=== PATIENT | male | born 1975 ===

== ENCOUNTER 2025-05-16 15:09 | Emergency (ER) | payer MEDICAID, SELFPAY ==
--- NOTE | ~2025-05-16 | XR_ITS ---
EXAMINATION: XR SHOULDER, LEFT CLINICAL INFORMATION: atraumatic left shoulder pain COMPARISON: None available. TECHNIQUE: AP external rotation, Grashey, scapular Y, and axillary views of the left shoulder. FINDINGS: There is no AC joint separation. There is moderate degenerative change of the AC joint with narrowing and small marginal osteophytes. Glenohumeral joint is intact and not degenerated. No fracture lines are evident. There are no abnormal soft tissue calcification. XR/XR shoulder LT min 2V IMPRESSION: Moderate AC joint arthropathy. Electronically signed by: Luis Holden MD 05/16/2025 03:26 PM EDT
--- NOTE | 2025-05-16 15:11 | ED.GENADULT ---
HPI - General Adult General Chief complaint: Extremity Problem Stated complaint: L shoulder pain Time Seen by Provider: 05/16/25 15:57 Source: patient Mode of arrival: ambulatory Limitations: no limitations History of Present Illness ED Provider: Joanne Harrison PA-C HPI narrative: Patient here with left sided shoulder/neck discomfort. Came here from [place] 3 weeks ago. Repetitive activity. Right side bothersome but not as much. Patient admits to probably overdoing it in regards to moving stuff from [place] he is not sure if he will be staying here permanently or not. He is right-hand dominant. He feels the pain in his bilateral upper shoulders were left side is worse in his left upper trap and upper middle deltoid region. Sometimes it radiates down his arm. He is denying any paresthesias or weakness of his limbs zone has no chest pain or discomfort with breathing. He has tried yrli-jey-[id number] Tylenol but it has made no difference. He states that as he is not from this area he did know where else to go so he came to the emergency department. He denies any trauma to these limbs before in the past. He is denying any associated neck pain but he does sleep on his left side was sometimes makes the back pain worse. Patient wanted to know if he can get a shot into his muscle to make the pain. Related Data Previous Rx's ?Medication ?Instructions ?Recorded lidocaine 5 % topical patch 1 patch topical DAILY #30 ea 05/16/25 (Lidoderm) methocarbamol 750 mg tablet 750 mg PO TID #10 tabs 05/16/25 Allergies Allergy/AdvReac Type Severity Reaction Status Date / Time No Known Allergies Allergy Verified 05/16/25 15:14 Review of Systems Review of Systems: Yes all other systems are reviewed and are negative PMFSH Past Medical History Attestation statement: The following information was validated with the patient. Source: nursing notes reviewed Social History Social History Advance Directives: No Advance Directives Information Provided: No Physical Exam ED Exam Exam: General: Appears in no acute distress, appears well nourished body habitus is obese, appears stated age. No septic or ill-appearing. Vitals reviewed normal, PMH/Social and Surgical hx reviewed including allergies and current medications. - Head: Normocephalic, no obvious trauma or skin lesions noted. Eyes: EOMI ENMT: moist oral mucosa Neck: trachea midline Cardiovascular: peripheral perfusion normal, Regular heart rate Respiratory: no respiratory distress, lungs clear to auscultation bilaterally Abdomen: obese Extremities: warm and moving without difficulty , patient has mild tenderness to palpation over his left anterior shoulder pain with resisted GH joint in all directions except for adduction. Tenderness with spasm of patient's left upper trapezius. No pain with neck rotation. Greeting Card Writer strength is 4+ throughout compartments are soft, there is no midline tenderness step-offs or deformities of entire spine Psych: Cooperative Neuro: Alert and oriented. Vital Signs: Vital Signs - 24 hr 05/16/25 15:12 05/16/25 16:00 05/16/25 16:37 Temperature 96.3 F L 97.1 F 97.1 F Pulse Rate 77 70 70 Respiratory Rate 18 15 15 Blood Pressure 160/94 H 154/88 H 154/88 H Pulse Oximetry 97 98 98 Oxygen Delivery Method Room Air Room Air Room Air BMI result Body Mass Index 41.0 Course Course Course Narrative: This is a Rapid Medical Examination (RME) performed by Amanda Anton PA-C in triage. Full HPI, ROS, assessment and treatment plan per primary provider in the Main ED. Hx: 49 yo M here for eval of atraumatic L shoulder pain, gradually worsening x2 weeks. applying icy hot without improvement. pain at rest and w /movement. no known injury/trauma/heavy lifting. no hx shoulder surgery. currently here from out of town - is unable to f/u with his provider. Plan: xrs Medical Decision Making Medical Decision Making MDM Narrative: Well-appearing 49-year-old male here for atraumatic left-sided shoulder pain but suspicious for repetitive activity with moving from here from [place]. He received a rapid medical exam from triage where they ordered a left shoulder x-ray. Left shoulder shows arthropathy of the AC joint but otherwise patient does not have pinpoint tenderness on here. This does not present as shoulder impingement or subacromial bursitis. Given history, exam and workup I have low suspicion for fracture, dislocation, significant ligamentous injury, septic arthritis, gout flare, new autoimmune arthropathy, or gonococcal arthropathy. He has good range of motion but some muscle tightening we will try a muscle relaxant and lidocaine patch and a advise follow up with Orthopedics. Interventions:Disposition: Discharge home with strict return precautions and instructions for prompt ortho follow up Differential Diagnosis Differential Diagnoses: The differential diagnosis associated with the presentation includes See MDM Admission/Observation Consideration of admission/observation: Escalation of care including admission/observation considered Patient would have been admitted to the hospital had his work up had any findings where hospital admission was appropriate and his clinical presentation warranted hospital admission. Independent Interpretation I performed an independent interpretation of an: Plain X-Ray Interpretation: No dislocation no fracture Radiology Impression Discussion of test interpretation with radiology: I have reviewed the radiologist's reading. Radiologist Impression: Arthropathy of the left AC joint Tests considered The following testing was considered but not selected: Would have considered further workup had there been any concerns for neurovascular compromise Prescription Management I considered prescription management with: Pain Medication Chronic Conditions Patient?s care impacted by: Other (obesity) Social Determinants Patient?s care significantly limited by Social Determinants of Health including: Other Social Determinant of Health Discharge Plan Discharge Clinical Impression: Strain of muscle and tendon of back wall of thorax, initial encounter, Spasm of thoracic back muscle Muscle strain of left shoulder region Qualifiers: Encounter type: initial encounter Qualified Code(s): S46.912A - Strain of unspecified muscle, fascia and tendon at shoulder and upper arm level, left arm, initial encounter Patient Disposition: Home, Self-Care Instructions: Muscle Strain (ED), Muscle Strain (DC), Muscle Spasm (ED) Additional Instructions: You were evaluated for your shoulders and upper back. As her left shoulder was more bothersome he received an x-ray which shows no evidence for fracture dislocation. Your history and physical exam is most consistent with a shoulder/trapezius muscle strain. Rest: Avoid sudden movements of your neck, heavy lifting, twisting and turning.?? Use ice to the area for the first 24-48 hours, then you can use moist heat to the area (use a warm moist cloth or heating pad) for 20 minutes at a time, 3-4 times a day.? Gentle massage to tight muscles can help.? Using a sportscream like [employer] or [email or web address] can also help. Use Motrin/Advil (ibuprofen) 600 mg three times a day for the next 5 days, then every 6 to 8 hours? as needed for pain. Take ibuprofen with food to avoid stomach irritation.? In addition, You can use Tylenol (acetaminophen) 650 mg every 6 hrs as needed for pain.? Do not take more than 3000 mg in one day! Follow up with your PCP in the next few days to be re-evaluated or orthopedics. Return to the ER if you develop a severe headache, numbness or weakness in your arms or legs, dizziness, change in your vision, nausea, vomiting, or any other new, concerning symptoms. Prescriptions: New methocarbamol 750 mg tablet 750 mg PO TID Qty: 10 0RF lidocaine [Lidoderm] 5 % adhesive patch,medicated 1 patch topical DAILY Qty: 30 0RF Rx Instructions: leave on most painful area for up to 12 hrs Referrals: [facility] [place] Orthopedic Surgeons [Provider Group] Referral Note: potential PT referral Interventions: ED Discharge Assessment Last Done: 05/16/25 16:37 Print Language: Polish
[2025-05-16 15:12] VITALS: BP 160/94; PULSE 77; RESP 18; TEMP 35.7; O2SAT 97; BMI 41.0
[2025-05-16 16:00] VITALS: BP 154/88; PULSE 70; RESP 15; TEMP 36.2; O2SAT 98
[2025-05-16 16:37] VITALS: BP 154/88; PULSE 70; RESP 15; TEMP 36.2; O2SAT 98
--- OUTSIDE RECORDS SUMMARY | 2025-05-16 16:52 | XMS_ITS | Clinical Summary ---
Author Organization [facility] Address [address] [place] [address] [place] [address] Care Team Providers Care Traffic Survey Technician Name Role Phone Aryan Charlton Primary Care Provider [phone] Allergies Active Allergy Reactions Criticality Noted Date Comments Banana Anaphylaxis High 09/30/2018 Bee Venom Anaphylaxis High 09/30/2018 Other Anaphylaxis High 09/30/2018 ANTIBIOTIC; pt does not remember which one Medications EPINEPHrine 0.3 mg/0.3 mL IJ SOAJ injection Inject 0.3 mLs (0.3 mg total) into the muscle as needed for anaphylaxis (bee stings). 2 Device 0 Active NON FORMULARY Pt uses a cpap nightly Active busPIRone (BUSPAR) 15 MG tablet Take 15 mg by mouth 2 (two) times daily. 5 Active Vitamin D, Ergocalciferol , (DRISDOL) 1.25 MG (13848 UNIT) CAPS capsule Take 50,000 Units by mouth every Thursday. 5 Active omeprazole (PRILOSEC) 20 MG capsule Take 20 mg by mouth daily as needed (acid reflux). 4 Active diclofenac sodium (VOLTAREN) 1 % GEL Apply 2 g topically 4 (four) times daily. 100 g 3 0 04/19/20 25 Discontin ued(No longer needed (for PRN medicatio ns)) amoxicillin-cl avulanate (AUGMENTIN) 875-125 MG tablet Take 1 tablet by mouth every 12 (twelve) hours. 14 tablet 1 04/19/20 25 Discontin ued(Compl eted Course) HYDROcodone-ac etaminophen (NORCO/VICODIN ) 5-325 MG tablet Take 1 tablet by mouth every 6 (six) hours as needed. 10 tablet 1 04/19/20 25 Discontin ued(No longer needed (for PRN medicatio ns)) MOUNJARO 15 MG/0.5ML Pen Inject 15 mg into the skin every Thursday. 4 04/19/20 25 Discontin ued(Patie nt Preferenc e) phentermine (ADIPEX-P) 37.5 MG tablet Take 37.5 mg by mouth daily before breakfast. 3 04/19/20 25 Discontin ued(Patie nt Preferenc e) traMADol (ULTRAM) 50 MG tablet Take 50 mg by mouth daily as needed for severe pain (pain score 7-10). 4 04/19/20 25 Discontin ued(No longer needed (for PRN medicatio ns)) Active Problems Problem Noted Date Diagnosed Date Unilateral primary osteoarthritis, left knee Unilateral primary osteoarthritis, right knee Abnormal CT scan, colon 02/24/2020 Microcytic anemia 11/09/2019 Portal vein thrombosis 11/08/2019 Acute diverticulitis 11/08/2019 Hyponatremia 11/08/2019 JACKSON (obstructive sleep apnea) 11/08/2019 Umbilical hernia 10/01/2018 Strangulated umbilical hernia 10/01/2018 Morbid obesity with BMI of 40.0-44.9, adult 12/13 Gastroesophageal reflux disease without esophagi tis 12/30/2016 Primary osteoarthritis of both knees 12/30/2016 Chronic constipation 12/30/2016 Resolved Problems Problem Noted Date Diagnosed Date Resolved Date Unilateral primary osteoarthritis, left knee 9 11/23/2019 Unilateral primary osteoarthritis, right knee 08/31/20 19 11/23/2019 Encounters Date Type Department Care Team Description 04/17/2025 Orders Only [facility] ONLY ACCESS Reymundo Jones MD 03/29/2025 Orders Only [facility] ONLY ACCESS Reymundo Jones MD 03/22/2025 Orders Only [facility] ONLY ACCESS Reymundo Jones MD from Last 3 Months Immunizations Immunization Administration Dates Next Due Influenza,inj,Quad PF,6+ Mos 11/23/2019 Tdap 11/23/2019 Family History Medical History Relation Name Comments Alcohol abuse Brother 1 Evert Arthritis Brother 1 Evert Depression Brother 1 Evert Diabetes Brother 1 Evert Drug abuse Brother 1 Evert Arthritis Brother 2 Haider Arthritis Brother 3 Eleazer Cancer Father Diabetes Father Arthritis Mother Asthma Mother Diverticulitis Mother Ovarian cancer Mother Esophageal cancer Paternal Grandfather Stomach cancer Paternal Grandfather Arthritis Sister Fatou Colon cancer Neg Hx Rectal cancer Neg Hx Relation Name Status Comments Brother 1 Evert Alive Brother 2 Haider Alive Brother 3 Eleazer Alive Father Maternal Grandfather Maternal Grandmother Mother Paternal Grandfather Paternal Grandmother Sister Fatou Alive Social History Tobacco Use Types Packs/Day Years Used Date Smoking Tobacco: Never Passive Smoke Exposure: Never Smokeless Tobacco: Never Tobacco Cessation:Counseling Given: No Alcohol Use Standard Drinks/Week Comments Not Currently 0 (1 standard drink = 0.6 oz pur e alcohol) Depression (PHQ2-9) Answer Date Recorde d PHQ-9 Total Score 0 11/23/2019 Sex and Gender Information Value Date Recorded Sex Assigned at Not on file Legal Sex Male 4:28 PM EST Gender Identity Not on file Sexual Orientation Not on file Last Filed Vital Signs Vital Sign Reading Time Taken Comments Blood Pressure 150/97 10/05/2024 2:45 PM EST Pulse 89 10/05/2024 2:45 PM EST Temperature 36.9 C (98.5 F) 10/05/2024 2:45 PM EST Respiratory Rate 18 10/05/2024 2:45 PM EST Oxygen Saturation 98% 10/05/2024 2:45 PM EST Inhaled Oxygen Concentration - - Weight 117.9 kg (260 lb) 10/05/2024 2:43 PM EST Height 177.8 cm (5' 10 ) 10/05/2024 2:43 PM EST Body Mass Index 37.31 10/05/2024 2:43 PM EST Plan of Treatment Health Maintenance Due Date Last Done Comments COVID-19 Vaccine (#1) 1982 Hepatitis C Screening 1995 Hepatitis B Vaccines 19-59 Average Risk (1 of 3 - 19+ 3-dose series) 1996 Colonoscopy 03/01/2023 03/01/2020, 03/01/2020, 03/01/2020 INFLUENZA VACCINE 04/14/2025 11/23/2019, 11/23/2019 DTaP/Tdap/Td (2 - Td or Tdap) 11/22/2029 11/23/2019 HIV Screening Completed 11/08/2019 HPV VACCINES Aged Out No longer eligi ble based on patient's age to complete this topic Meningococcal B Vaccine Aged Out No l onger eligible based on patient's age to complete this topic Pneumococcal Vaccine Aged Out No long er eligible based on patient's age to complete this topic Medical Devices Implanted Type Area Debarker Operator Device Identifier Shelf Expiration Date Model / Serial / Lot Mesh Ventralex [employer] [employer] - [id number] Implanted:Qt y: 1 on 10/01/2018 by Ghassan Jernigan MD at [facility] Mesh General N/A: Umbilical [employer] BARD ACCESS 05/11/2020 [id number] / / [id number] Procedures Procedure Name Priority Date/Time Associated Diagnosis Comments COLONOSCOPY 03/01/2020 4:34 PM EDT HIV ANTIBODY (ROUTINE TESTING W REFLEX) Routine 11/08/2019 9:57 PM EST from Last 3 Months or Most Recently Relevant to Health Maintenance Results * COLONOSCOPY (03/01/2020 4:34 PM EDT) us Jaun Elpidio V, DO AR PROCEDURES Final Resu lt * HIV Antibody (routine testing w rflx) (11/08/2019 9:57 PM EST) HIV Screen 4th Generation wRfx Non Reactive Non Reactive [facility] Comment: (NOTE) Performed At: [facility] [id number] Billy Griffith MD Ph:[phone] Blood specimen (specimen) 11/08/2019 9:57 PM EST 11/08/2019 10:07 PM EST us Nighat Ngo MD LAB BLOOD ORDERABLES Final Re sult [facility] from Last 3 Months or Most Recently Relevant to Health Maintenance Insurance BS OTHER [place] MED[place] [employer] Advance Directives * Full Code (Latest Code Status on File) Date Activated Date Inactivated Comments 11/08/2019 7:24 PM 11/14/2019 3:59 PM * Full Code Date Activated Date Inactivated Comments 10/01/2018 8:08 AM 10/03/2018 12:13 AM Care Teams Traffic Survey Technician Relationship Specialty Start Date End Date Aryan Charlton PA [address] [facility] [place] [address] PCP - General Physician Health Assessment And Treatment Teacher 04/27/25
--- OUTSIDE RECORDS SUMMARY | 2025-05-16 16:52 | XMS_ITS | Clinical Summary ---
Author Organization [facility]ly [facility] visits prior to 11/14/2023. [place] [address] Care Team Providers Care Instructional Support Services Director Name Role Phone Riki Schneider MD Primary Care Provider [phone] Allergies Active Allergy Reactions Criticality Noted Date Comments Banana Swelling (ALLERGY/intolerance),Cherelle phylaxis (ALLERGY) High 12/30/2016 Bee Sting Kit Swelling (ALLERGY/intolerance) 12/30/2016 Other Anaphylaxis (ALLERGY) High 09/30/2018 ANTIBIOTIC; pt does not remember which one Venom-Honey Bee Anaphylaxis (ALLERGY) High 9 Medications Medication Sig Dispensed Refills Start Date End Date Status omeprazole (PRILOSEC) 10 MG capsule Take 1 tablet by mouth once daily 0 Active cyclobenzaprine (FLEXERIL) 10 MG tablet Take 10 mg by mouth 3 (three) times daily as needed for Muscle spasms. 0 Active phentermine (ADIPEX-P) 37.5 mg tablet Take 1 tablet (37.5 mg total) by mouth daily. 0 01/26/2023 Active tadalafiL (CIALIS) 10 MG tablet 0 02/03/2023 Active tirzepatide (MOUNJARO) 15 mg/0.5 mL subcutaneous injection Inject contents of one pen (15 mg) under skin weekly 2 mL 0 11/10/2023 Active Hospital, Clinic, or Other Facility Administered Medication Ordered Dose Route Frequency Start Date End Date Status triamcinolone acetonide (KENALOG) 40 mg/mL injection 40 mgIndications:Primary osteoarthritis of both knees 40 mg IAtc 02/09/2023 Active triamcinolone acetonide (KENALOG) 40 mg/mL injection 40 mgIndications:Primary osteoarthritis of both knees 40 mg IAtc 02/09/2023 Active Active Problems Problem Noted Date Diagnosed Date Bilateral knee effusions 06/11/2020 Primary osteoarthritis of both knees 12/30/2016 Gastroesophageal reflux disease without esophagi tis 12/30/2016 Chronic constipation 12/30/2016 Morbid obesity with BMI of 40.0-44.9, adult 12/13 Umbilical hernia without obstruction and without gangrene 12/30/2016 JACKSON on CPAP 12/30/2016 Chronic eczematous otitis externa of both ears 0 12/30/2016 Family History Medical History Relation Comments Diabetes Father Stomach cancer Father Ovarian cancer Mother Relation Status Comments Father Mother Social History Tobacco Use Types Packs/Day Years Used Date Smoking Tobacco: Never Smokeless Tobacco: Never Tobacco Cessation:Counseling Given: Not Answered Alcohol Use Standard Drinks/Week Comments No 0 (1 standard drink = 0.6 oz pur e alcohol) Sex and Gender Information Value Date Recorded Sex Assigned at Not on file Gender Identity Not on file Sexual Orientation Not on file Last Filed Vital Signs Vital Sign Reading Time Taken Comments Blood Pressure 124/70 12/30/2016 2:45 PM EDT Pulse 100 12/30/2016 2:45 PM EDT Temperature - - Respiratory Rate 18 12/30/2016 2:45 PM EDT Oxygen Saturation 95% 12/30/2016 2:45 PM EDT Inhaled Oxygen Concentration - - Weight 138.8 kg (306 lb) 02/05/2023 5:00 PM EDT Height 177.8 cm (5' 10 ) 02/05/2023 5:00 PM EDT Body Mass Index 43.91 02/05/2023 5:00 PM EDT Plan of Treatment Health Maintenance Due Date Last Done Comments COLONOSCOPY 2022 INFLUENZA VACCINE 04/14/2025 11/23/2019 Care Teams Instructional Support Services Director Relationship Specialty Start Date End Date Riki Schneider MD [facility] [place] [address] PCP - General Internal Medicine 12/10/16
--- OUTSIDE RECORDS SUMMARY | 2025-05-16 16:52 | XMS_ITS | Encounter Summary ---
Author Organization [facility] Address [address] [place] [address] Care Team Providers Care Surgical Forceps Fabricator Name Role Phone Riki Schneider MD Primary Care Provider [phone] Encounter Details Date Type Department Care Team (Late st Contact Info) Description 12/30/2016 Conversion Orders Only [employer] HISTORICAL DATA CONVERSIONS [address] [place] [address] Social History Tobacco Use Types Packs/Day Years Used Date Smoking Tobacco: Never Assessed Sex and Gender Information Value Date Recorded Sex Assigned at Male 03/03/2024 11:22 AM EDT Legal Sex Male 9:53 AM EST Gender Identity Not on file Sexual Orientation Not on file documented as of this encounter Plan of Treatment Not on file documented as of this encounter Visit Diagnoses Not on filedocumented in this encounter Care Teams Surgical Forceps Fabricator Relationship Specialty Start Date End Date Riki Schneider MD PCP - General Internal Medicine 12/10/16 documented as of this encounter
--- OUTSIDE RECORDS SUMMARY | 2025-05-16 16:52 | XMS_ITS | Clinical Summary ---
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 7 Active phentermine 37.5 mg tab Take 37.5 mg by mouth Once Daily. 3 Active tadalafiL (CIALIS) 10 mg tablet 3 Active tirzepatide (Mounjaro) 12.5 mg/0.5 mL pnij Inject contents of 1 syringe (12.5 mg) under the skin once a week. 30 mL 12/28/2023 1:34 PM EDT 4 Active omeprazole (PriLOSEC) [address] capsule 1 cap by mouth daily 30 capsule 2 4 Active ondansetron (ZOFRAN) 4 mg tablet Take 1 tablet (4 mg total) by mouth 3 (three) times a day. 30 tablet 02/15/2024 12:06 PM EDT 4 Active tadalafiL (CIALIS) 10 mg tablet Take 1 tablet (10 mg total) by mouth daily as needed before sexual activity. Max of 1 dose per 24 hours. Effects may last 36 hours. 30 tablet 2 4 Active tirzepatide (Mounjaro) 15 mg/0.5 mL pnij Inject contents of 1 syringe into the skin once weekly 2 mL 02/15/2024 12:06 PM EDT 4 Active traMADoL (ULTRAM) 50 mg tablet Take 1 tablet (50 mg total) by mouth 2 (two) times a day as needed. 20 tablet 02/15/2024 12:06 PM EDT 4 Active tirzepatide (Mounjaro) 15 mg/0.5 mL pnij Inject contents of 1 syringe under the skin once a week. 2 mL 03/14/2024 1:26 PM EDT 4 Active traMADoL (ULTRAM) 50 mg tablet Take 1 tablet (50 mg total) by mouth 2 (two) times a day as needed. 20 tablet 04/08/2024 3:07 PM EDT 4 Active phentermine 37.5 mg tab Take 1 tablet (37.5 mg total) by mouth daily. 30 tablet 07/19/2024 3:17 PM EST 4 Active atorvastatin (LIPITOR) 10 mg tablet Take 1 tablet by mouth daily 90 tablet 4 Active buPROPion (Wellbutrin XL) 150 mg 24 hr tablet Take 1 tablet (150 mg total) by mouth daily. 30 tablet 4 Active tadalafiL (CIALIS) 10 mg tablet Take 1 tablet (10 mg total) by mouth daily as needed. Effects may last 36 hours. Max 1 dose per 24 hour period. 30 tablet 2 07/19/2024 3:17 PM EST 4 Active ubrogepant (Ubrelvy) 100 mg tab tablet Take 1 tablet (100 mg total) by mouth daily as needed. 16 tablet 5 4 Active buPROPion (Wellbutrin XL) 150 mg 24 hr tablet 1 tab by mouth daily 30 tablet 07/11/2024 2:13 PM EDT 4 Active tadalafiL (CIALIS) 10 mg tablet Take 1 tablet (10 mg total) by mouth daily as needed. 30 tablet 2 4 Active tirzepatide (Mounjaro) 15 mg/0.5 mL subcutaneous pen injector 0.5 mL under skin weekly 2 mL 09/05/2024 4:59 PM EST 4 Active tadalafiL (CIALIS) 10 mg tablet Take 1 to 2 tablets (10-20 mg total) by mouth as needed before sexual activity. Do NOT exceed 2 tablets per dose and do NOT take more than once per 24 hours. Effects may last 36 hours. 30 tablet 2 04/10/2025 1:44 PM EDT 5 Active traMADoL (ULTRAM) 50 mg tablet Take 1 tablet (50 mg total) by mouth daily as needed for bilateral knee pain. 14 tablet 11/07/2024 3:52 PM EST 5 Active traMADoL (ULTRAM) 50 mg tablet 1 (one) tablet by mouth daily, as needed, for bilateral knee pain. 30 tablet 5 Active minoxidiL (LONITEN) 2.5 mg tablet Take 1 tablet (2.5 mg total) by mouth daily. 90 tablet 1 11/07/2024 3:52 PM EST 5 Active phentermine 37.5 mg tab Take 1 (one) Tablet by mouth daily 30 tablet 5 Active traMADoL (ULTRAM) 50 mg tablet 1 (one) tablet by mouth daily, as needed, for bilateral knee pain. 30 tablet 11/24/2024 4:30 PM EDT 5 Active tirzepatide (Mounjaro) 15 mg/0.5 mL subcutaneous pen injector Inject contents of 1 syringe (15 mg total) under the skin once a week. 2 mL 12/02/2024 3:37 PM EDT 5 Active busPIRone (BUSPAR) 7.5 mg tablet Take 1 tablet (7.5 mg total) by mouth 2 (two) times a day. 60 tablet 03/07/2025 2:39 PM EDT 5 Active ergocalciferol (VITAMIN D2) 1,250 mcg (50,000 unit) capsule Take 1 capsule (50,000 Units total) by mouth once a week. 4 capsule 5 03/07/2025 2:39 PM EDT 5 Active tirzepatide (Mounjaro) 15 mg/0.5 mL subcutaneous pen injector Inject 0.5 mL (15 mg total) under the skin once a week. 2 mL 03/07/2025 2:39 PM EDT 5 Active phentermine 37.5 mg tab Take 1 (one) Tablet by mouth daily 30 tablet 03/07/2025 2:39 PM EDT 5 Active tadalafiL (CIALIS) 10 mg tablet Take 1 tablet by mouth up to once daily, 30 minutes before sexual activity as needed. Effects may last for 36 hours. 12 tablet 5 Active busPIRone (BUSPAR) 15 mg tablet Take 1 tablet (15 mg total) by mouth 2 (two) times a day. 60 tablet 03/31/2025 2:19 PM EDT 5 Active phentermine 37.5 mg tab Take 1 tablet (37.5 mg total) by mouth daily. 30 tablet 5 Active traMADoL (ULTRAM) 50 mg tablet Take 1 tablet (50 mg total) by mouth daily as needed for bilateral knee pain. 30 tablet 03/31/2025 2:19 PM EDT 5 Active atorvastatin (LIPITOR) 10 mg tablet Take 1 tablet (10 mg total) by mouth daily. 90 tablet 03/31/2025 2:19 PM EDT 5 Active pantoprazole (PROTONIX) 40 mg EC tablet Take 1 tablet (40 mg total) by mouth daily. 90 tablet 03/31/2025 2:19 PM EDT 5 Active Active Problems Problem Noted Date Diagnosed [...] Sign Reading Time Taken Comments Blood Pressure 124/85 12/21/2024 9:02 AM EDT Pulse 92 12/21/2024 9:02 AM EDT Temperature 36.9 C (98.4 F) 12/21/2024 9:02 AM EDT Respiratory Rate 12 12/21/2024 9:02 AM EDT Oxygen Saturation - - Inhaled Oxygen Concentration - - Weight 121 kg (266 lb) 12/05/2024 2:57 PM EDT Height 170.2 cm (5' 7 ) 12/21/2024 9:02 AM EDT Body Mass Index 41.66 12/05/2024 2:57 PM EDT Plan of Treatment Health Maintenance Due Date Last Done Comments Comprehensive Annual Visit 1977 Diabetes Screening 1995 HIV Screening 1995 Hepatitis C Screening 1995 Hepatitis B Vaccines (1 of 3 - 19+ 3-dose series) 1996 CT Colonography 2022 FIT-DNA 2022 FIT 2022 FOBT 2022 Sigmoidoscopy 2022 Influenza Vaccine (#1) 2025 11/23/2019 COVID-19 Vaccine ( - 2023-2 5 season) 2025 Depression Screening 12/05/2025 12/05/2024 DTaP/Tdap/Td Vaccines (2 - T d or Tdap) 11/22/2029 11/23/2019 Colonoscopy 03/01/2030 03/01/2020 Colorectal Cancer Screening 03/01/2030 Adult RSV (60+ Years or Preg chirag) (1 - 1-dose 75+ series) 2052 HIB Vaccines Aged Out No longer eligi ble based on patient's age to complete this topic HPV Vaccines Aged Out No longer eligi ble based on patient's age to complete this topic Hepatitis A Vaccines Aged Out No long er eligible based on patient's age to complete this topic IPV Vaccines Aged Out No longer eligi ble based on patient's age to complete this topic Meningococcal B Vaccine Aged Out No l onger eligible based on patient's age to complete this topic Meningococcal Conjugate (ACW Y) Vaccine Aged Out No longer eligible b ased on patient's age to complete this topic Pneumococcal Vaccine: Pediat rics (0 to 5 years) and At-Risk Patients (6-49 Years) Aged Out No longer eligible based on patient's age to complete this topic Rotavirus Vaccines Aged Out No longer eligible based on patient's age to complete this topic [place] Care Teams Lead Electrician Relationship Specialty Start Date End Date Riki Schneider MD PCP - General Internal Medicine 12/10/16
--- OUTSIDE RECORDS SUMMARY | 2025-05-16 16:52 | XMS_ITS | Encounter Summary ---
Author Organization [facility] Address [address] [place] [address] Care Team Providers Care Log Pond Worker Name Role Phone Liliana Castillo MD Primary Care Provi mirella Aryan Charlton Primary Care Provider [phone] Encounter Details Date Type Department Care Team (Late st Contact Info) Description 01/25/2020 Scanned Document [facility] Dept Of [address] [address] Provider, MD Julianne Social History Tobacco Use Types Packs/Day Years Used Date Smoking Tobacco: Never Smokeless Tobacco: Never Alcohol Use Standard Drinks/Week Comments Not Currently 0 (1 standard drink = 0.6 oz pur e alcohol) Depression (PHQ2-9) Answer Date Recorde d PHQ-9 Total Score 0 11/23/2019 Sex and Gender Information Value Date Recorded Sex Assigned at Not on file Legal Sex Male 4:28 PM EST Gender Identity Not on file Sexual Orientation Not on file COVID-19 Exposure Response Date Recorded In the last month, have you been in contact with someone who was confirmed or suspected to have Coronavirus / COVID-19? No / Unsure 01/10/2020 11:47 AM EDT documented as of this encounter Plan of Treatment Not on file documented as of this encounter Procedures Procedure Name Priority Date/Time Associated Diagnosis Comments MOLECULAR PATHOLOGY REPORT - SCANNED Routine 01/10/2020 documented in this encounter Results * Molecular Pathology report - scanned (01/10/2020) 01/10/2020 us Historical Provider CYTOLOGY ORDERABLES Final Result documented in this encounter Visit Diagnoses Not on filedocumented in this encounter Care Teams Log Pond Worker Relationship Specialty Start Date End Date Liliana Castillo MD [address] [place] [address] PCP - General Internal Medicine 11/21/19 04/26/25 Aryan Charlton PA [address] [place] [address] PCP - General Physician Wheel Worker 04/27/25 documented as of this encounter
--- OUTSIDE RECORDS SUMMARY | 2025-05-16 16:52 | XMS_ITS | Encounter Summary ---
Author Organization [facility] Address [address] [place] [address] [place] [address] Care Team Providers Care County Court Judge Name Role Phone Liliana Castillo MD Primary Care Provi mirella Aryan Charlton Primary Care Provider [phone] Reason for Visit * Reason Comments Covid-19 Screening Questions Encounter Details Date Type Department Care Team (Late st Contact Info) Description 02/29/2020 Telephone [facility] [place] [address] [address] Jaun Magallanes V, DO [address] [facility] [place] [address] Covid-19 Screening Questions Social History Tobacco Use Types Packs/Day Years [...] have Coronavirus / COVID-19? No / Unsure 03/01/2020 3:23 PM EDT documented as of this encounter Miscellaneous Notes * Telephone Encounter - Marilyn Finley - 02/29/2020 2:34 PM EDT Covid-19 Screening Questions: Do you now or have you had a fever in the last 14 days? No Do you have any respiratory symptoms of shortness of breath or cough now or in the last 14 days? No Do you have any family members or close contacts with diagnosed or suspected Covid-19 in the past 14 days? No Have you been tested for Covid-19 and found to be positive? No Pt made aware of that care attendant may wait in the car or come up to the lobby during the procedurebut will need to provide their own mask. documented in this encounter Plan of Treatment Not on file documented as of this encounter Visit Diagnoses Not on filedocumented in this encounter Care Teams County Court Judge Relationship Specialty Start Date End Date Liliana Castillo MD [address] [place] [address] PCP - General Internal Medicine 11/21/19 04/26/25 Aryan Charlton PA [address] [place] [address] PCP - General Physician Telesales Manager 04/27/25 documented as of this encounter
--- OUTSIDE RECORDS SUMMARY | 2025-05-16 16:52 | XMS_ITS | Encounter Summary ---
Author Organization [facility] Address [address] [place] [address] Care Team Providers Care Trade Sales Assistant Name Role Phone Riki Schneider MD Primary Care Provider [phone] Encounter Details Date Type Department Care Team (Late st Contact Info) Description 02/05/2023 Conversion Orders Only [facility] [address] [place] [address] Social History Tobacco Use Types Packs/Day Years [...] on filedocumented in this encounter Care Teams Trade Sales Assistant Relationship Specialty Start Date End Date Riki Schneider MD PCP - General Internal Medicine 12/10/16 documented as of this encounter
--- OUTSIDE RECORDS SUMMARY | 2025-05-16 16:52 | XMS_ITS | Encounter Summary ---
Author Organization [facility] Address [address] [place] [address] Care Team Providers Care Table Tender Sludge Name Role Phone [facility] Primary Care Provider Liliana Castillo MD Primary Care Provi mirella Aryan Charlton PA Primary Care Provider [phone] Encounter Details Date Type Department Care Team (Late st Contact Info) Description 09/12/2019 Telephone [facility] [place] [address] [place] [id number] Fabio Cartagena MD [address] [place], [place] [id number] Social History Tobacco Use Types Packs/Day Years Used Date Smoking Tobacco: Never Smokeless Tobacco: Never Sex and Gender Information Value Date Recorded Sex Assigned at Not on file Legal Sex Male 4:28 PM EST Gender Identity Not on file Sexual Orientation Not on file documented as of this encounter Miscellaneous Notes * Telephone Encounter - Fabio Cartagena MD - 09/12/2019 5:22 PM EST I'll send some in. * Telephone Encounter - Guerline Lynn RMA - 09/12/2019 3:36 PM EST Please advise * Telephone Encounter - Ese Garcia - 09/12/2019 2:22 PM EST [facility] Medication needed Tramadol Patient called he stated he didn't receive medicine after his appointment documented in this encounter Plan of Treatment Not on file documented as of this encounter Visit Diagnoses Not on filedocumented in this encounter Care Teams Table Tender Sludge Relationship Specialty Start Date End [facility] [address] [place] [address] PCP - General Family Medicine 09/30/18 11/20/19 Liliana Castillo MD [address] [place] [address] PCP - General Internal Medicine 11/21/19 04/26/25 Aryan Charlton PA [address] [place] [address] PCP - General Physician Learning And Development Intern 04/27/25 documented as of this encounter
--- OUTSIDE RECORDS SUMMARY | 2025-05-16 16:52 | XMS_ITS | Encounter Summary ---
Author Organization [facility] Address [address] [place] [address] Care Team Providers Care Business Data Analyst Name Role Phone Liliana Castillo MD Primary Care Provi mirella Aryan Charlton Primary Care Provider [phone] Encounter Details Date Type Department Care Team (Late st Contact Info) Description 03/29/2025 Orders Only [facility] ONLY ACCESS Reymundo Jones MD [address] [place] [address] Social History Tobacco Use Types Packs/Day Years Used Date Smoking Tobacco: Never Passive Smoke Exposure: Never Smokeless Tobacco: Never Alcohol Use Standard [...] on filedocumented in this encounter Care Teams Business Data Analyst Relationship Specialty Start Date End Date Liliana Castillo MD [address] [place] [address] PCP - General Internal Medicine 11/21/19 04/26/25 Aryan Charlton PA [address] [place] [address] PCP - General Physician Technical Applications Scientist 04/27/25 documented as of this encounter
--- OUTSIDE RECORDS SUMMARY | 2025-05-16 16:52 | XMS_ITS | Encounter Summary ---
Author Organization [facility] Address [address] [place] [address] Care Team Providers Care Pbx Inspector Name Role Phone Liliana Castillo MD Primary Care Provi mirella Aryan Charlton Primary Care Provider [phone] Encounter Details Date Type Department Care Team (Late st Contact Info) Description 03/22/2025 Orders Only [facility] ONLY ACCESS Reymundo Jones MD [address] [place] [address] Social History Tobacco Use Types [...] on filedocumented in this encounter Care Teams Pbx Inspector Relationship Specialty Start Date End Date Liliana Castillo MD [address] [place] [address] PCP - General Internal Medicine 11/21/19 04/26/25 Aryan Charlton PA [address] [place] [address] PCP - General Physician Audio Visual Specialist 04/27/25 documented as of this encounter
--- OUTSIDE RECORDS SUMMARY | 2025-05-16 16:52 | XMS_ITS | Referral Summary ---
Author Organization [facility] [address] Care Team Providers Care Electrical Maintenance Engineer Name Role Phone Riki Schneider MD Primary [...] otitis externa of both ears 0 12/30/2016 Social History Tobacco Use Types Packs/Day Years [...] 12/05/2024 2:57 PM EDT Plan of Treatment Not on file [place] Care Teams Electrical Maintenance Engineer Relationship Specialty Start Date End Date Riki Schneider MD PCP - General Internal Medicine 12/10/16
--- OUTSIDE RECORDS SUMMARY | 2025-05-16 16:52 | XMS_ITS | Encounter Summary ---
Author Organization Formerly [facility] Address [address] [place] [address] Care Team Providers Care Blanket Washer Name Role Phone Liliana Castillo MD Primary Care Provi mirella Aryan Charlton Primary Care Provider + [phone] Reason for Referral * Episode Based Medications (Routine) - Closed Specialty Diagnoses / Procedures Referred By Contac t Referred To Contact Oncology Diagnoses Portal vein thrombosis Procedures JAK2 (INCLUDING V617F AND EXON 12), MPL,& CALR W/RFL MPN PANEL (NGS) Kristian Thakkar MD Phone: tel: fax: [facility] - A Dept Of [address] [place] [address] Phone: tel: fax: Referral ID Status Reason Start Date Expiration Date Visits Re quested Visits Authorized [id number] Closed 01/06/2020 10/02/2020 1 1 Encounter Details Date Type Department Care Team (Late st Contact Info) Description 01/06/2020 Orders Only [facility] - A Dept Of [address] [place] [address] Kristian Thakkar MD [address] [place] [address] Portal vein thrombosis (Primary Dx) Social History Tobacco Use Types Packs/Day Years [...] on file documented as of this encounter Results * PNH Profile (High Sensitivity) (01/10/2020 11:52 AM EDT) Interpretation Comment [facility] Comment: (NOTE) Peripheral Blood: No evidence of paroxysmal nocturnal hemoglobinuria (PNH). Comment: Comment [facility] Comment: (NOTE) At the sensitivity level of this assay (typically 0.01-0.1%) these results do not support a diagnosis of paroxysmal nocturnal hemoglobinuria (PNH). Correlation with all available clinical, laboratory, and morphologic data is recommended. (Sensitivity typically 0.01-0.1%; lower limit of detection dependent on number of cells present and events acquired, typically 90,000+ events acquired.) Specimen: Peripheral Blood [facility] Submitted Dx: Comment [facility] Comment:Evaluation for parox ysmal nocturnal hemoglobinuria (PNH) Viability: 98% [facility] Comment:(7AAD exclusion) Cell Population Comment [facility] Comment:Population Analysis Granulocytes: anchor deficiency [facility] Comment: Comment No GPI Monocytes: anchor deficiency [facility] Comment: Comment No GPI Antibodies Performed: Comment [facility] Comment:CD14, CD15, CD24, CD 45, CD64, FLAER Comment: Comment [facility] Comment: (NOTE) This test was developed and its performance characteristics determined by [facility]. It has not been cleared or approved by the Food and Drug Administration (FDA). The FDA has determined that such clearance or approval is not necessary. Any image(s) that accompany this report is/are a manufacturer representative image(s) only and should not be used to render a diagnosis. Director Review PN Comment [facility] Comment: (NOTE) Reviewed By: Derian Robbins M.D. Performed At: ;# [facility] [address] [id number] Benigno Bello MD Ph:[phone] 01/10/2020 11:5 2 AM EDT 01/10/2020 11:53 AM EDT us Kristian Thakkar MD LAB BLOOD ORDERABLES Edited Resu lt - Final [facility] * JAK2 (INCLUDING V617F AND EXON 12), MPL,& CALR W/RFL MPN PANEL (NGS) (01/10/2020 11:52 AM EDT) Pathologist [facility] ELIZABETH 2, MPL, JUSTICE, MPN See Scanned report in [facility] Comment:Performed at [facility] at [facility], [address], [place] [address] Blood specimen (specimen) 01/10/2020 11:52 AM EDT 01/10/2020 11:53 AM EDT us Kristian Thakkar MD LAB BLOOD ORDERABLES Final Resul t Performing Organization Address [facility]/ZIP Co de Phone Number [facility] * Save Smear (SSMR) (01/10/2020 11:52 AM EDT) Pathologist [facility] Smear Review SMEAR STAINED AND AVAILABLE FOR REVIEW [facility] Comment:Performed at [facility], [address], [place] [address] Blood specimen (specimen) 01/10/2020 11:52 AM EDT 01/10/2020 11:53 AM EDT us Kristian Thakkar MD LAB BLOOD ORDERABLES Final Resul t Performing Organization Address City/[facility]/ZIP Co de Phone Number [facility] * CMP (Cancer Center only) (01/10/2020 11:52 AM EDT) Sodium 138 135 - 145 mmol/L [facility] Potassium 4.5 3.5 - 5.1 mmol/L [facility] Chloride 102 98 - 111 mmol/L [facility] CO2 30 22 - 32 mmol/L [facility] Glucose, Bld 84 70 - 99 mg/dL [facility] BUN 10 6 - 20 mg/dL [facility] Creatinine 0.90 0.61 - 1.24 mg/dL [facility] Calcium 10.1 8.9 - 10.3 mg/dL [facility] Total Protein 7.7 6.5 - 8.1 g/dL [facility] Albumin 4.3 3.5 - 5.0 g/dL [facility] AST 20 15 - 41 U/L [facility] ALT 30 0 - 44 U/L [facility] Alkaline Phosphatase 93 38 - 126 U/L [facility] Total Bilirubin 0.3 0.3 - 1.2 mg/dL [facility] GFR, Estimated >60 >60 mL/min [facility] GFR, Est AFR Am >60 >60 mL/min [facility] Anion gap 6 5 - 15 [facility] Comment:Performed at [facility], [address] [facility], [place] [address] Blood specimen (specimen) 01/10/2020 11:52 AM EDT 01/10/2020 11:53 AM EDT us Kristian Thakkar MD LAB BLOOD ORDERABLES Final Resul t [facility] * CBC with Differential (Cancer Center Only) (01/10/2020 11:52 AM EDT) WBC Count 7.2 4.0 - 10.5 K/uL [facility] RBC 5.21 4.22 - 5.81 MIL/uL [facility] Hemoglobin 14.2 13.0 - 17.0 g/dL [facility] HCT 44.0 39.0 - 52.0 % [facility] MCV 84.5 80.0 - 100.0 fL [facility] MCH 27.3 26.0 - 34.0 pg [facility] MCHC 32.3 30.0 - 36.0 g/dL [facility] RDW 13.7 11.5 - 15.5 % [facility] Platelet Count 311 150 - 400 K/uL [facility] nRBC 0.0 0.0 - 0.2 % [facility] Neutrophils Relative % 62 % [facility] Neutro Abs 4.5 1.7 - 7.7 K/uL [facility] Lymphocytes Relative 24 % [facility] Lymphs Abs 1.7 0.7 - 4.0 K/uL [facility] Monocytes Relative 11 % [facility] Monocytes Absolute 0.8 0.1 - 1.0 K/uL [facility] Eosinophils Relative 1 % [facility] Eosinophils Absolute 0.1 0.0 - 0.5 K/uL [facility] Basophils Relative 1 % [facility] Basophils Absolute 0.1 0.0 - 0.1 K/uL [facility] Immature Granulocytes 1 % [facility] Abs Immature Granulocytes 0.05 0.00 - 0.07 K/uL [facility] Comment:Performed at [facility], [address] [place] [address], [place] [address] 01/10/2020 11:5 2 AM EDT 01/10/2020 11:53 AM EDT us Kristian Thakkar MD LAB BLOOD ORDERABLES Final Resul t [facility] documented in this encounter Visit Diagnoses Diagnosis Portal vein thrombosis- Primary documented in this encounter Care Teams Blanket Washer Relationship Specialty Start Date End Date Liliana Castillo MD [address] [place] [address] PCP - General Internal Medicine 11/21/19 04/26/25 Aryan Charlton PA [address] [place] [address] PCP - General Physician Zookeeper 04/27/25 documented as of this encounter
--- OUTSIDE RECORDS SUMMARY | 2025-05-16 16:52 | XMS_ITS | Encounter Summary ---
Author Organization Formerly [facility] Address [address] [place] [address] Care Team Providers Care Registered Nurse Cardiovascular Icu Name Role Phone Liliana Castillo MD Primary Care Provi mirella Aryan Charlton Primary Care Provider [phone] Encounter Details Date Type Department Care Team (Late st Contact Info) Description 04/17/2025 Orders Only [facility] ACCESS Reymundo Jones MD [address] [place] [address] Social History Tobacco Use Types [...] on filedocumented in this encounter Care Teams Registered Nurse Cardiovascular Icu Relationship Specialty Start Date End Date Liliana Castillo MD [address] [place] [address] PCP - General Internal Medicine 11/21/19 04/26/25 Aryan Charlton PA [address] [place] [address] PCP - General Physician Assayer 04/27/25 documented as of this encounter
--- OUTSIDE RECORDS SUMMARY | 2025-05-16 16:52 | XMS_ITS | Encounter Summary ---
Author Organization [facility] Address [address] [place] [address] Care Team Providers Care Osteology Teacher Name Role Phone Liliana Castillo MD Primary Care Provi mirella Aryan Charlton Primary Care Provider + [phone] Reason for Referral * Episode Based Medications (Routine) - Closed Specialty Diagnoses / Procedures Referred By Contac t Referred To Contact Diagnoses Portal vein thrombosis Procedures Prothrombin gene mutation* Kristian Thakkar MD Phone: tel: fax: Referral ID Status Reason Start Date Expiration Date Visits Re quested Visits Authorized [id number] Closed 02/24/2020 11/20/2020 1 1 * Episode Based Medications (Routine) - Closed Specialty Diagnoses / Procedures Referred By Contac t Referred To Contact Oncology Diagnoses Portal vein thrombosis Procedures Factor 5 Leiden* Kristian Thakkar MD Phone: tel: fax: [facility] - A Dept Of [facility] [address] [place] [address] Phone: tel: fax: Referral ID Status Reason Start Date Expiration Date Visits Re quested Visits Authorized [id number] Closed 02/24/2020 11/20/2020 1 1 Encounter Details Date Type Department Care Team (Late st Contact Info) Description 02/24/2020 Orders Only [facility] - [facility] Dept Of [facility] [address] [place] [address] Kristian Thakkar MD [address] [place] [address] Portal vein thrombosis (Primary Dx) Social History [...] have Coronavirus / COVID-19? No / Unsure 02/27/2020 8:04 AM EDT documented as of this encounter Plan of Treatment Scheduled Orders Name Type Priority Associated Diagnoses Orde r Schedule Antiphospholipid Syndrome Comp Lab Routine Portal vein thrombosis Ordered: 02/24/2020 documented as of this encounter Results * Cardiolipin antibodies, IgG, IgM, IgA* (02/24/2020 1:28 PM EDT) Anticardiolipin IgG <9 0 - 14 GPL U/mL [facility] Comment: (NOTE) Negative: <15 Indeterminate: 15 - 20 Low-Med Positive: >20 - 80 High Positive: >80 Anticardiolipin IgM <9 0 - 12 MPL U/mL [facility] Comment: (NOTE) Negative: <13 Indeterminate: 13 - 20 Low-Med Positive: >20 - 80 High Positive: >80 Anticardiolipin IgA <9 0 - 11 APL U/mL [facility] Comment: (NOTE) Negative: <12 Indeterminate: 12 - 20 Low-Med Positive: >20 - 80 High Positive: >80 Performed At: [facility] [id number] Billy Griffith MD Ph:[phone] Blood specimen (specimen) 02/24/2020 1:28 PM EDT 02/24/2020 1:29 PM EDT Kristian Thakkar MD LAB BLOOD ORDERABLES Final Resul t Performing Organization Address [facility] Co de Phone Number [facility] * Yuhl-5-tsbdzgoikspe i abs, IgG/M/A (02/24/2020 1:28 PM EDT) Beta-2 Glyco I IgG <9 0 - 20 GPI IgG units [facility] Comment: (NOTE) The reference interval reflects a 3SD or 99th percentile interval, which is thought to represent a potentially clinically significant result in accordance with the International Consensus Statement on the classification criteria for definitive antiphospholipid syndrome (APS). J Thromb Haem 2006;4:295-306. Hyzn-2-Xdilwygznnvi I IgM <9 0 - 32 GPI IgM units [facility] Comment: (NOTE) The reference interval reflects a 3SD or 99th percentile interval, which is thought to represent a potentially clinically significant result in accordance with the International Consensus Statement on the classification criteria for definitive antiphospholipid syndrome (APS). J Thromb Haem 2006;4:295-306. Performed At: [address] [id number] Billy Griffith MD Ph:[phone] Gevq-1-Vkamucolwinu I IgA <9 0 - 25 GPI IgA units [facility] Comment: (NOTE) The reference interval reflects a 3SD or 99th percentile interval, which is thought to represent a potentially clinically significant result in accordance with the International Consensus Statement on the classification criteria for definitive antiphospholipid syndrome (APS). J Thromb Haem 2006;4:295-306. Blood specimen (specimen) 02/24/2020 1:28 PM EDT 02/24/2020 1:29 PM EDT Kristian Thakkar MD LAB BLOOD ORDERABLES Final Resul t Performing Organization Address [facility]/ZIP Co de Phone Number [facility] * Prothrombin gene mutation* (02/24/2020 1:28 PM EDT) [facility]-PT DEREJE: Comment [facility] Comment: (NOTE) NEGATIVE No mutation identified. Comment: A point mutation ([id number]) in the factor II (prothrombin) gene is the second most common cause of inherited thrombophilia. The incidence of this mutation in the [place] population is about 2% and in the population it is approximately 0.5%. This mutation is rare in the and population. Being heterozygous for a prothrombin mutation increases the risk for developing venous thrombosis about 2 to 3 times above the general population risk. Being homozygous for the prothrombin gene mutation increases the relative risk for venous thrombosis further, although it is not yet known how much further the risk is increased. In women heterozygous for the prothrombin gene mutation, the use of estrogen containing oral contraceptives increases the relative risk of venous thrombosis about 16 times and the risk of developing cerebral thrombosis is also significantly increased. In the prothrombin gene mutation increases risk for venous thrombosis and may increase risk for stillbirth, placental abruption, pre-eclampsia and growth restriction. If the patient possesses two or more congenital or acquired thrombophilic risk factors, the risk for thrombosis may rise to more than the sum of the risk ratios for the individual mutations. This assay detects only the prothrombin [id number] mutation and does not measure genetic abnormalities elsewhere in the genome. Other thrombotic risk factors may be pursued through systematic clinical laboratory analysis. These factors include the R506Q (Leiden) mutation in the Factor V gene, plasma homocysteine levels, as well as testing for deficiencies of antithrombin III, protein C and protein S. Genetic Counselors are available for health care providers to discuss results at [phone] Methodology: DNA analysis of the Factor II gene was performed by PCR amplification followed by restriction analysis. The diagnostic sensitivity is >99% for both. All the tests must be combined with clinical information for the most accurate interpretation. Molecular-based testing is highly accurate, but as in any laboratory test, diagnostic errors may occur. This test was developed and its performance characteristics determined by [facility]. It has not been cleared or approved by the Food and Drug Administration. Stefaniet SR, et al. Blood. 1996; 88:5161-4406. Iban EA. Circulation. 2004; 110:e15-e18. Jhonathan I, et al. Arterioscler Thromb Vasc Biol. 1999; 19:700-703. Jacy Bundy, PhD, FACMG Francheska Carlson, PhD, FACMG Rosemary Martinez M.S., PhD, FACMG Fernanda Mistry, PhD, FACMG Kayley Maradiaga, PhD, FACMG Boone Kruger, PhD, FACMG Performed At: [facility] [address] [facility], [place] [id number] Evgeny Caraballo [facility] Ph:[phone] Blood specimen (specimen) 02/24/2020 1:28 PM EDT 02/24/2020 1:29 PM EDT Kristian Thakkar MD LAB BLOOD ORDERABLES Final Resul t [facility] * Factor 5 Leiden* (02/24/2020 1:28 PM EDT) Recommendations-F5L BLAKE: Comment [facility] Comment: (NOTE) Result: Negative (no mutation found) Factor V Leiden is a specific mutation (R506Q) in the factor V gene that is associated with an increased risk of venous thrombosis. Factor V Leiden is more resistant to inactivation by activated protein C. As a result, factor V persists in the circulation leading to a mild hyper- coagulable state. The Leiden mutation accounts for 90% - 95% of APC resistance. Factor V Leiden has been reported in patients with deep vein thrombosis, pulmonary embolus, central retinal vein occlusion, cerebral sinus thrombosis and hepatic vein thrombosis. Other risk factors to be considered in the workup for venous thrombosis include the U12469P mutation in the factor II (prothrombin) gene, protein S and C deficiency, and antithrombin deficiencies. Anticardiolipin antibody and lupus anticoagulant analysis may be appropriate for certain patients, as well as homocysteine levels. Contact your local [facility] for information on how to order additional testing if desired. Genetic counselors are available for health care providers to discuss results at [phone] Methodology: DNA analysis of the Factor V gene was performed by allele-specific PCR. The diagnostic sensitivity and specificity is >99% for both. Molecular-based testing is highly accurate, but as in any laboratory test, diagnostic errors may occur. All test results must be combined with clinical information for the most accurate interpretation. This test was developed and its performance characteristics determined by [facility]. It has not been cleared or approved by the Food and Drug Administration. References: Karri Paul (1996). Clin Lab Med 16:169-186. Jacy Bundy, PhD, FACMG Francheska Carlson, PhD, FACMG Rosemary Martinez M.S., PhD, FACMG Fernanda Mistry, PhD, FACMG Kayley Maradiaga, PhD, FACMG Boone Kruger PhD, FACMG Performed At: [facility] [address] [facility], [place] [id number] Evgeny Caraballo [facility] Ph:[phone] Blood specimen (specimen) 02/24/2020 1:28 PM EDT 02/24/2020 1:29 PM EDT Kristian Thakkar MD LAB BLOOD ORDERABLES Final Resul t [facility] documented in this encounter Visit Diagnoses Diagnosis Portal vein thrombosis- Primary documented in this encounter Care Teams Osteology Teacher Relationship Specialty Start Date End Date Liliana Castillo MD [address] [place] [address] PCP - General Internal Medicine 11/21/19 04/26/25 Aryan Charlton PA [address] [place] [address] PCP - General Physician Blade Sharpener 04/27/25 documented as of this encounter
== END 2025-05-16 16:46 | disposition home or self-care (01) ==
PROVIDERS: Emergency Provider Emergency Medicine
DX: S46.912A Strain of unspecified muscle, fascia and tendon at shoulder and upper arm level, left arm, initial encounter (principal); X58.XXXA Exposure to other specified factors, initial encounter; Y93.9 Activity, unspecified; Y92.9 Unspecified place or not applicable; Y99.9 Unspecified external cause status; M62.830 Muscle spasm of back; M25.512 Pain in left shoulder
CPT/HCPCS: 73030; 99283

== ENCOUNTER → 2025-05-16 15:14 | Outpatient (BNV) | payer SELFPAY | PROVIDERS: Visit Provider Radiology Diagnostic Radiology | DX: M19.012 Primary osteoarthritis, left shoulder (principal) | CPT/HCPCS: 73030 ==

== ENCOUNTER 2025-06-07 13:55 | Emergency (ER) | payer MEDICAID, SELFPAY ==
[2025-06-07 14:16] VITALS: BP 134/66; PULSE 69; RESP 14; TEMP 36.2; O2SAT 98; BMI 35.1
--- NOTE | 2025-06-07 14:17 | ED_ITS ---
HPI - General Adult General Chief complaint: Upper Respiratory Symptoms Stated complaint: fever, sore throat, upper resp symptoms Time Seen by Provider: 06/07/25 14:57 Source: patient Mode of arrival: ambulatory Limitations: no limitations History of Present Illness ED Provider: Indigo Montana PA-C HPI narrative: This is a 49 year old male that presents for evaluation of upper respiratory symptoms. His primary complaint is scratchy throat. He endorses mild runny nose and postnasal drip. He endorses mild cough and states that he thinks he may have had a fever this morning. He states that he is feeling fatigued today and that he had mild difficulty sleeping last night. He denies changes in urination or stool. He denies any abdominal pain, diarrhea, or constipation. He denies any rash or skin changes. He denies any changes in vision or hearing. He denies any new joint pain. He endorses a history of osteoarthritis of bilateral knees. He also mentions that he has chronic left shoulder pain that is bothering him today. Related Data Previous Rx's ?Medication ?Instructions ?Recorded lidocaine 5 % topical patch 1 patch topical DAILY #30 ea 05/16/25 (Lidoderm) methocarbamol 750 mg tablet 750 mg PO TID #10 tabs 11/08 Allergies Allergy/AdvReac Type Severity Reaction Status Date / Time banana Allergy Anaphylaxis Verified 06/07/25 14:18 Review of Systems Constitutional: Constitutional: Reports as per HPI Eyes: Eyes: Reports as per HPI ENT: Reports as per HPI Cardiovascular: Cardiovascular: Reports as per HPI Respiratory: Respiratory: Reports as per HPI Gastrointestinal: Gastrointestinal: Reports as per HPI Genitourinary: Genitourinary: Reports as per HPI Musculoskeletal: Musculoskeletal: Reports as per HPI Integumentary/Breasts: Skin/Breast: Reports as per HPI Neurologic: Reports as per HPI Psychiatric: Psychiatric: Reports as per HPI Hematologic/Lymphatic: Hematologic/Lymphatic: Reports as per HPI [facility] Past Medical History Attestation statement: The following information was validated with the patient. Source: old records reviewed and nursing notes reviewed Social History Social History Smoked in Last 30 Days: No Use of substances other than those prescribed or required for medical reasons: No Advance Directives: No Advance Directives Information Provided: No Do you have a plan to hurt others: No Plan Physical Exam ED Vital Signs: Vital Signs - 24 hr 06/07/25 14:16 06/07/25 15:11 06/07/25 15:11 Temperature 97.1 F Pulse Rate 69 79 Respiratory Rate 14 18 Blood Pressure 134/66 131/87 Pulse Oximetry 98 97 97 Oxygen Delivery Method Room Air Room Air Room Air 06/07/25 15:50 Temperature 0 F L Pulse Rate 79 Respiratory Rate 18 Blood Pressure 131/87 Pulse Oximetry 97 Oxygen Delivery Method Room Air BMI result Body Mass Index 35.1 Const General: cooperative, comfortable, alert, awake and diaphoretic Nutritional Appearance: well nourished Orientation/consciousness: oriented to person, oriented to place, oriented to time and patient oriented x3 HENMT Head: Yes normal to inspection, Yes normocephalic and Yes atraumatic Ears: external ears normal General nose exam: Normal external nose present, Normal nares present, Normal nasal mucous membranes and turbinates present and No nasal discharge present Face and sinus: Yes normal facial exam Mouth: Normal oral and palatal mucosa present, oropharynx normal and moist mucous membranes Throat: Yes posterior oropharynx normal, Yes tonsils normal and Yes uvula midline Eyes General: appearance normal, both eyes and all related structures Periorbital: periorbital findings normal Eyelids: Yes eyelids normal Conjunctivae: conjunctivae normal Pupils: Equal, round and reactive pupils present and Pinpoint pupils EOM: EOMs intact bilaterally Neck Neck: Yes normal visual inspection, Yes no lymphadenopathy and Yes supple Resp Effort & Inspection: normal respiratory effort and able to speak in complete sentences Auscultation: clear to auscultation bilaterally Cardio Rhythm: regular rhythm Heart sounds: S1 normal heart sound present and S2 normal heart sound present GI Inspection: Yes normal to inspection Palpation (GI): Soft to palpation Auscultation: normal bowel sounds Skin General skin exam: no rashes or lesions noted Lesions: no lesions Rashes: no rashes Trauma: no lacerations or abrasions Wounds: no wounds Neuro General: oriented to person, oriented to place, oriented to time, patient oriented x3 and moves all extremities Cranial nerves: Yes Equal, round and reactive pupils present Cognition (Neuro): normal cognition Extrem General: Yes normal to inspection Psych Appearance: grossly normal Mental Status: mental status grossly normal Affect: normal affect Attitude: cooperative Thought process: Normal thought process present Thought content: Normal thought content present Insight: Good insight present (Psych) Course Course Course Narrative: This is a rapid medical exam performed by Atiya Starkey NP: Additional HPI, ROS, PE not included below will be deferred to primary provider. Patient is a 49y/o M presenting with complaint of sore throat, cough, subjective fever. Also states he was seen here for L shoulder pain previously, lives out of town, has not followed up regarding this. Plan: strep and viral swabs Medical Decision Making Medical Decision Making [facility] Narrative: Patient is a 49 year old assigned male at with a history of chronic left shoulder pain presenting to the emergency department today with a cough, sore throat, and acute on chronic left shoulder pain. Patient's physical exam was unremarkable. Patient's COVID-19, influenza, and strep testing was negative. I explained my physical exam findings as well as all test results to the patient. I answered all questions asked by the patient. I stressed the importance of the patient taking his medication as directed (either prescribed or as the over the counter packaging recommends). I stressed the importance of the patient following up with his primary care provider and to consider following up with an orthopedic walk in for a cortisone shot in his left shoulder since he wants it BERONICA and we do not do them here in the ED. I stressed the importance of the patient returning to the emergency department immediately if his symptoms were to worsen or if he were to develop any dizziness, shortness of breath, difficulty breathing, chest pain, blurry vision, loss of vision, nausea, vomiting, abdominal pain, fever, chills, back pain, or any other complaints. Patient verbalized agreement and understanding with this treatment plan and discharge. Differential Diagnosis Differential Diagnoses: The differential diagnosis associated with the presentation includes Acute on chronic left shoulder pain COVID-19 Influenza Strep pharyngitis Admission/Observation Consideration of admission/observation: Escalation of care including admission/observation considered Patient would have been admitted to the hospital had his work up had any findings where hospital admission was appropriate and his clinical presentation warranted hospital admission. Lab Data [facility] Lab Attestation statement: I reviewed the patient's lab results. My interpretation of these studies and their corresponding values is that they are grossly normal. Labs: Lab Results 06/07/25 Range/Units 14:58 COVID-19 (TIFFANIE) Negative (Negative) COVID-19 Clin Com See Note Influenza Type A (ISABEL) Negative (Negative) Influenza Type B (ISABEL) Negative (Negative) Influenza A & B Note See Note S. pyogenes GrpA ISABEL Negative (Negative) Discharge Plan Discharge Clinical Impression: Viral illness, Chronic left shoulder pain Patient Disposition: Home, Self-Care Instructions: Viral Syndrome (ED), Shoulder Pain (ED) Additional Instructions: Your symptoms are consistent with a viral illness. Your left should should be addressed by an orthopedic team and since you are looking to get a cortisone shot BERONICA - I recommend following up with an ortho walk in clinic in the area. IF you are prescribed home medications and/or you are taking over the counter medications at home - it is very important you continue to do so as prescribed / directed unless told otherwise. Follow up with a primary care provider. Return to the emergency department immediately if your symptoms worsen or if you develop any numbness, tingling, dizziness, shortness of breath, difficulty breathing, chest pain, blurry vision, loss of vision, nausea, vomiting, abdominal pain, fever, chills, back pain, or any other complaints. If you do not have a primary care provider - call any of the below numbers to establish and follow up with a primary care provider. [facility] ([place]) [phone] [place] [address], [address] [facility] ([address] [place]) [phone] [place] [address], [address] [facility], [address] [facility] ([address] [place]) [phone] [place] [address], [address] [facility], [address] [facility] ([place]) [phone] [place] [address], [address] [facility], [address] [facility] Family Medicine [phone] [address] [facility], [address] Please see the information below about our Patient Portal. If you are not yet enrolled in the [facility] Patient Portal, you will receive an enrollment email invitation following your visit to any [facility] setting. You may also self-enroll in the Patient Portal by visiting our website: [email or web address] The following information is required to access the Patient Portal: - Your [facility] Medical Record Number - Your personal home email address (must match what is in your electronic medical record, Registration staff can assist with this) - Name - Date of Capabilities of the Patient Portal: - Message some providers - View upcoming appointments - Access your health summary, medical history, and visit history - View current conditions and allergies - View procedure and lab results - View your medications, including guidelines, side effects, and precautions - Complete pre-appointment questionnaires requested by your provider - Ready summary reports of your office visits and procedures To access the Patient Portal Mobile Cirilo, follow these directions: - Search [employer]vote in the Cirilo Store or Google O[employer]ica Store - Download the Cirilo - Search for [facility] - Enter your login/password Prescriptions: No Action methocarbamol 750 mg tablet 750 mg PO TID Qty: 10 0RF lidocaine [Lidoderm] 5 % adhesive patch,medicated 1 patch topical DAILY Qty: 30 0RF Rx Instructions: leave on most painful area for up to 12 hrs Interventions: ED Discharge Assessment Last Done: 06/07/25 15:50 Discharge Date/Time: 06/07/25 15:51 Print Language: Monegasque
[2025-06-07 15:11] VITALS: BP 131/87; PULSE 79; RESP 18; O2SAT 97
--- NOTE | 2025-06-07 15:14 | PC.NURSE ---
49 M here for dry cough and sore throat x 2 days, body aches 02/21. A+Ox4, calm, cooperative. RR even and unlabored, denies CP or SOB. Pt sts he also has ongoing L shoulder pain, was seen here about a month ago for this and it's still very painful. Pt ambulates without difficulty.
[2025-06-07 15:26] LABS: IDNOW Serial# 08D9AD1C; Strep A Nucleic Acid Negative (Negative)
[2025-06-07 15:35] LABS: COVID-19 Test Negative (Negative); IDNOW Serial# 55D5AD1C; IDNOW Serial# 58CA691E; Influenza B2 Negative (Negative)
[2025-06-07 15:50] VITALS: BP 131/87; PULSE 79; RESP 18; TEMP -17.7; TEMP 0; O2SAT 97
--- OUTSIDE RECORDS SUMMARY | 2025-06-07 17:47 | XMS_ITS | Encounter Summary ---
Author Organization [facility] Address [address] [place] [address] Care Team Providers Care Tour Escort Name Role Phone Liliana Castillo MD Primary Care Provi mirella Aryan Charlton Primary Care Provider + [phone] Reason for Referral * Episode Based Medications (Routine) - Closed Specialty Diagnoses / Procedures Referred By Contac t Referred To Contact Diagnoses Portal vein thrombosis Procedures Prothrombin gene mutation* Kristian Thakkar MD Phone: tel: fax: Referral ID Status Reason Start Date Expiration Date Visits Re quested Visits Authorized [id number] Closed 02/24/2020 11/20/2020 1 1 * Episode Based Medications (Routine) - Closed Specialty Diagnoses / Procedures Referred By Contac t Referred To Contact Oncology Diagnoses Portal vein thrombosis Procedures Factor 5 Leiden* Kristian Thakkar MD Phone: tel: fax: [facility] [address] [place] [address] Phone: tel: fax: Referral ID Status Reason Start Date Expiration Date Visits Re quested Visits Authorized [id number] Closed 02/24/2020 11/20/2020 1 1 Encounter Details Date Type Department Care Team (Late st Contact Info) Description 02/24/2020 Orders Only [facility] [address] [place] [address] Kristian Thakkar MD [address] [place] [address] Portal vein thrombosis (Primary Dx) [...] IgG <9 0 - 14 GPL U/mL [facility] Comment: (NOTE) Negative: <15 Indeterminate: 15 - 20 Low-Med Positive: >20 - 80 High Positive: >80 Anticardiolipin IgM <9 0 - 12 MPL U/mL [facility] Comment: (NOTE) Negative: <13 Indeterminate: 13 - 20 Low-Med Positive: >20 - 80 High Positive: >80 Anticardiolipin IgA <9 0 - 11 APL U/mL [facility] Comment: (NOTE) Negative: <12 Indeterminate: 12 - 20 Low-Med Positive: >20 - 80 High Positive: >80 Performed At: [facility] [id number] Billy Griffith MD Ph:[phone] Blood specimen (specimen) 02/24/2020 1:28 PM EDT 02/24/2020 1:29 PM EDT Kristian Thakkar MD LAB BLOOD ORDERABLES Final Resul t Performing Organization Address [facility] Co de Phone Number [facility] * Nbbe-8-nbzukukilfcv i abs, IgG/M/A (02/24/2020 1:28 PM EDT) Beta-2 Glyco I IgG <9 0 - 20 GPI IgG units [facility] Comment: (NOTE) The reference interval reflects a 3SD or 99th percentile interval, which is thought to represent a potentially clinically significant result in accordance with the International Consensus Statement on the classification criteria for definitive antiphospholipid syndrome (APS). J Thromb Haem 2006;4:295-306. Ixha-7-Qcpdstjzwvor I IgM <9 0 - 32 GPI IgM units [facility] Comment: (NOTE) The reference interval reflects a 3SD or 99th percentile interval, which is thought to represent a potentially clinically significant result in accordance with the International Consensus Statement on the classification criteria for definitive antiphospholipid syndrome (APS). J Thromb Haem 2006;4:295-306. Performed At: [address] [id number] Billy Griffith MD Ph:[phone] Dggs-9-Vbwemunvuxin I IgA <9 0 - 25 GPI IgA units [facility] Comment: (NOTE) The reference interval [...] ORDERABLES Final Resul t Performing Organization Address [facility]/ZIP Co de Phone Number [facility] * Prothrombin gene mutation* (02/24/2020 1:28 PM EDT) [facility]-PT DEREJE: Comment [facility] Comment: (NOTE) NEGATIVE No mutation identified. Comment: A point mutation ([id number]) in the factor II (prothrombin) gene is [...] mutations. This assay detects only the prothrombin [id number] mutation and does not measure genetic abnormalities [...] health care providers to discuss results at [phone] ([phone]). Methodology: DNA analysis of the Factor II gene was performed by PCR amplification followed by restriction analysis. The diagnostic sensitivity is >99% for both. All the tests must be combined with clinical information for the most accurate interpretation. Molecular-based testing is highly accurate, but as in any laboratory test, diagnostic errors may occur. This test was developed and its performance characteristics determined by [employer]. It has not been cleared or approved by the Food and Drug Administration. Stefaniet SR, et al. Blood. 1996; 88:8840-0825. Iban EA. Circulation. 2004; 110:e15-e18. Jhonathan I, et al. Arterioscler Thromb Vasc Biol. 1999; 19:700-703. Jacy Bundy, PhD, FACMG Francheska Carlson, PhD, FACMG Rosemary Martinez M.S., PhD, FACMG Fernanda Mistry, PhD, FACMG Kayley Maradiaga, PhD, FACMG Boone Kruger, PhD, FACMG Performed At: [facility] [address] [facility], [place] [id number] Evgeny Caraballo [facility] Ph:[phone] Blood specimen (specimen) 02/24/2020 1:28 PM EDT 02/24/2020 1:29 PM EDT Kristian Thakkar MD LAB BLOOD ORDERABLES Final Resul t [facility] * Factor 5 Leiden* (02/24/2020 1:28 PM EDT) Recommendations-F5L BLAKE: Comment [facility] Comment: (NOTE) Result: Negative (no [...] the workup for venous thrombosis include the [id number] mutation in the factor II (prothrombin) gene, protein S and C deficiency, and antithrombin deficiencies. Anticardiolipin antibody and lupus anticoagulant analysis may be appropriate for certain patients, as well as homocysteine levels. Contact your local [facility] for information on how to order additional testing if desired. Genetic counselors are available for health care providers to discuss results at [phone] ([phone]). Methodology: DNA analysis of the Factor V [...] PhD, FACMG Performed At: [facility] [address] [facility], [place] [id number] Evgeny Caraballo [facility] Ph:[phone] Blood specimen (specimen) 02/24/2020 1:28 PM EDT 02/24/2020 1:29 PM EDT Kristian Thakkar MD LAB BLOOD ORDERABLES Final Resul t [facility] documented in this encounter Visit Diagnoses Diagnosis Portal vein thrombosis- Primary documented in this encounter Care Teams Tour Escort Relationship Specialty Start Date End Date Liliana Castillo MD [address] [place] [address] PCP - General Internal Medicine 11/21/19 04/26/25 Aryan Charlton PA [address] [place] [address] PCP - General Physician Brood Hatchery Manager 04/27/25 documented as of this encounter
--- OUTSIDE RECORDS SUMMARY | 2025-06-07 17:47 | XMS_ITS | Encounter Summary ---
Author Organization [facility] Address [address] [place] [address] Care Team Providers Care Customer Operations Manager Name Role Phone [facility] Medicine At Primary Care Provider Liliana Castillo MD Primary Care Provi mirella Aryan Charlton PA Primary Care Provider + [phone] Encounter Details Date Type Department Care Team (Late st Contact Info) Description 09/12/2019 Telephone [facility] [place] [address] [place] [id number] Fabio Cartagena MD [address] [place], [place] [id number] Social History Tobacco Use Types Packs/Day Years [...] Garcia - 09/12/2019 2:22 PM EST Pharmacy [facility] Medication needed Tramadol Patient called he stated he didn't receive medicine after his appointment documented in this encounter Plan of Treatment Not on file documented as of this encounter Visit Diagnoses Not on filedocumented in this encounter Care Teams Customer Operations Manager Relationship Specialty Start Date End Date [facility] [address] [place] [address] PCP - General Family Medicine 09/30/18 11/20/19 Liliana Castillo MD [address] [place] [address] PCP - General Internal Medicine 11/21/19 04/26/25 Aryan Charlton PA [address] [place] [address] PCP - General Physician Ball Point Splitter 04/27/25 documented as of this encounter
--- OUTSIDE RECORDS SUMMARY | 2025-06-07 17:47 | XMS_ITS | Clinical Summary ---
Author Organization [facility] [place] [address] Care Team Providers Care Ux Consultant Name Role Phone Riki Schneider MD Primary [...] 03/01/2030 Adult RSV (60+ Years or Preg hcirag) (1 - 1-dose 75+ series) 2052 HIB [...] patient's age to complete this topic [place] Care Teams Ux Consultant Relationship Specialty Start Date End Date Riki Schneider MD PCP - General Internal Medicine 12/10/16
--- OUTSIDE RECORDS SUMMARY | 2025-06-07 17:47 | XMS_ITS | Clinical Summary ---
Author Organization [facility] Address [address] [place] [address] [place] [address] Care Team Providers Care Senior Courtroom Clerk Name Role Phone Aryan Charlton Primary Care Provider [phone] Allergies Active Allergy Reactions Criticality Noted Date [...] (two) times daily. 5 Active Vitamin D, Ergocalciferol, (DRISDOL) 1.25 MG (46394 UNIT) CAPS capsule Take 50,000 Units by mouth every Thursday. 5 Active omeprazole (PRILOSEC) 20 MG capsule Take 20 mg by mouth daily as needed (acid reflux). 4 Active Active Problems Problem Noted Date Diagnosed [...] series) 1996 Colonoscopy 03/01/2023 03/01/2020, 03/01/2020, 03/01/2020 Influenza Vaccine 04/14/2025 11/23/2019, 11/23/2019 DTaP/Tdap/Td (2 - Td [...] this topic Medical Devices Implanted Type Area [employer]erman Device Identifier Shelf Expiration Date Model / Serial / Lot Mesh Ventralex [place] [facility] - [id number] Implanted:Qt y: 1 on 10/01/2018 by Ghassan Jernigan MD at [facility] Mesh General N/A: Umbilical [employer] BARD ACCESS 05/11/2020 [id number] / / [id number] Procedures Procedure Name Priority Date/Time Associated Diagnosis Comments COLONOSCOPY 03/01/2020 4:34 PM EDT HIV ANTIBODY (ROUTINE TESTING W REFLEX) Routine 11/08/2019 9:57 PM EST from Last 3 Months or Most Recently Relevant to Health Maintenance Results * COLONOSCOPY (03/01/2020 4:34 PM EDT) us Jaun Cirigliano V, AR PROCEDURES Final Resu lt * HIV Antibody (routine testing w rflx) (11/08/2019 9:57 PM EST) HIV Screen 4th Generation wRfx Non Reactive Non Reactive [facility] Comment: (NOTE) Performed At: [facility] [id number] Billy Griffith MD Ph:[phone] Blood specimen (specimen) 11/08/2019 9:57 PM EST 11/08/2019 10:07 PM EST us Nighat Ngo MD LAB BLOOD ORDERABLES Final Re sult [facility] from Last 3 Months or Most Recently Relevant to Health Maintenance Insurance [facility] OTHER [place] [employer] Advance Directives * Full Code (Latest Code Status on File) Date Activated Date Inactivated Comments 11/08/2019 7:24 PM 11/14/2019 3:59 PM * Full Code Date Activated Date Inactivated Comments 10/01/2018 8:08 AM 10/03/2018 12:13 AM Care Teams Senior Courtroom Clerk Relationship Specialty Start Date End Date Aryan Charlton PA [address] [place] [address] PCP - General Physician Hvac/R Instructor 04/27/25
--- OUTSIDE RECORDS SUMMARY | 2025-06-07 17:47 | XMS_ITS | Encounter Summary ---
Author Organization [facility] Address [address] [place] [address] [place] [address] Care Team Providers Care Dip Tube Assembler Machine Name Role Phone Liliana Castillo MD Primary Care Provi mirella Aryan Charlton Primary Care Provider [phone] Reason for Visit * Reason Comments Covid-19 Screening Questions Encounter Details Date Type Department Care Team (Late st Contact Info) Description 02/29/2020 Telephone [facility] [place] [address] [address] Jaun Magallanes V, DO [address] [facility] [place] [address] Covid-19 Screening Questions Social History [...] positive? No Pt made aware of that child daycare worker may wait in the car or come up to the lobby during the procedurebut will need to provide their own mask. documented in this encounter Plan of Treatment Not on file documented as of this encounter Visit Diagnoses Not on filedocumented in this encounter Care Teams Dip Tube Assembler Machine Relationship Specialty Start Date End Date Liliana Castillo MD [address] [place] [address] PCP - General Internal Medicine 11/21/19 04/26/25 Aryan Charlton PA [address] [place] [address] PCP - General Physician Nursing Unit Manager 04/27/25 documented as of this encounter
--- OUTSIDE RECORDS SUMMARY | 2025-06-07 17:47 | XMS_ITS | Encounter Summary ---
Author Organization Replaced By [facility] Address [address] [place] [address] Care Team Providers Care Eyeglass Maker Name Role Phone Liliana Castillo MD Primary Care Provi mirella Aryan Charlton Primary Care Provider [phone] Encounter Details Date Type Department Care Team (Late st Contact Info) Description 03/29/2025 Orders Only [facility]-VIEW ONLY ACCESS Reymundo Jones MD [address] [place] [address] Social History Tobacco Use Types [...] on filedocumented in this encounter Care Teams Eyeglass Maker Relationship Specialty Start Date End Date Liliana Castillo MD [address] [place] [address] PCP - General Internal Medicine 11/21/19 04/26/25 Aryan Charlton PA [address] [place] [address] PCP - General Physician Social Service Worker 04/27/25 documented as of this encounter
--- OUTSIDE RECORDS SUMMARY | 2025-06-07 17:47 | XMS_ITS | Encounter Summary ---
Author Organization [facility] Address [address] [place] [address] Care Team Providers Care Director Of Special Events Name Role Phone Liliana Castillo MD Primary Care Provi mirella Aryan Charlton Primary Care Provider + [phone] Reason for Referral * Episode Based Medications (Routine) - Closed Specialty Diagnoses / Procedures Referred By Contac t Referred To Contact Oncology Diagnoses Portal vein thrombosis Procedures JAK2 (INCLUDING V617F AND EXON 12), MPL,& CALR W/RFL MPN PANEL (NGS) Kristian Thakkar MD Phone: tel: fax: [facility] - A Dept Of [address] [place] [address] Phone: tel: fax: Referral ID Status Reason Start Date Expiration Date Visits Re quested Visits Authorized [id number] Closed 01/06/2020 10/02/2020 1 1 Encounter Details Date Type Department Care Team (Late st Contact Info) Description 01/06/2020 Orders Only [facility] - [facility] Dept Of [address] [place] [address] Kristian Thakkar MD [address] [place] [address] Portal vein thrombosis (Primary Dx) Social History [...] Sensitivity) (01/10/2020 11:52 AM EDT) Interpretation Comment [facility] Comment: (NOTE) Peripheral Blood: No evidence of paroxysmal nocturnal hemoglobinuria (PNH). Comment: Comment [facility] Comment: (NOTE) At the sensitivity level of this assay (typically 0.01-0.1%) these results do not support a diagnosis of paroxysmal nocturnal hemoglobinuria (PNH). Correlation with all available clinical, laboratory, and morphologic data is recommended. (Sensitivity typically 0.01-0.1%; lower limit of detection dependent on number of cells present and events acquired, typically 90,000+ events acquired.) Specimen: Peripheral Blood [facility] Submitted Dx: Comment [facility] Comment:Evaluation for parox ysmal nocturnal hemoglobinuria (PNH) Viability: 98% [facility] Comment:(7AAD exclusion) Cell Population Comment [facility] Comment:Population Analysis Granulocytes: anchor deficiency [facility] Comment: Comment No GPI Monocytes: anchor deficiency [facility] Comment: Comment No GPI Antibodies Performed: Comment [facility] Comment:CD14, CD15, CD24, CD 45, CD64, FLAER Comment: Comment [facility] Comment: (NOTE) This test was developed and its performance characteristics determined by [facility]. It has not been cleared or approved by the Food and Drug Administration (FDA). The FDA has determined that such clearance or approval is not necessary. Any image(s) that accompany this report is/are a financial sales representative image(s) only and should not be used to render a diagnosis. Director Review PN Comment [facility] Comment: (NOTE) Reviewed By: Derian Robbins M.D. Performed At: ;# [facility] [address] [id number] Benigno Bello MD Ph:[phone] 01/10/2020 11:5 2 AM EDT 01/10/2020 11:53 AM EDT us Kristian Thakkar MD LAB BLOOD ORDERABLES Edited Resu lt - Final [facility] * JAK2 (INCLUDING V617F AND EXON 12), MPL,& CALR W/RFL MPN PANEL (NGS) (01/10/2020 11:52 AM EDT) Pathologist [facility] ELIZABETH 2, MPL, JUSTICE, MPN See Scanned report in [facility] Comment:Performed at [facility] at [facility], [address], [place] [address] Blood specimen (specimen) 01/10/2020 11:52 AM EDT 01/10/2020 11:53 AM EDT us Kristian Thakkar MD LAB BLOOD ORDERABLES Final Resul t Performing Organization Address [facility]/ZIP Co de Phone Number [facility] * Save Smear (SSMR) (01/10/2020 11:52 AM EDT) Pathologist [facility] Smear Review SMEAR STAINED AND AVAILABLE FOR REVIEW [facility] Comment:Performed at [facility] at [facility], [address], [place] [address] Blood specimen (specimen) 01/10/2020 11:52 AM EDT 01/10/2020 11:53 AM EDT us Kristian Thakkar MD LAB BLOOD ORDERABLES Final Resul t Performing Organization Address City/[facility]/ZIP Co de Phone Number [facility] * CMP (Cancer Center only) (01/10/2020 11:52 AM EDT) Sodium 138 135 - 145 mmol/L [facility] Potassium 4.5 3.5 - 5.1 mmol/L [facility] Chloride 102 98 - 111 mmol/L [facility] CO2 30 22 - 32 mmol/L [facility] Glucose, Bld 84 70 - 99 mg/dL [facility] BUN 10 6 - 20 mg/dL [facility] Creatinine 0.90 0.61 - 1.24 mg/dL [facility] Calcium 10.1 8.9 - 10.3 mg/dL [facility] Total Protein 7.7 6.5 - 8.1 g/dL [facility] Albumin 4.3 3.5 - 5.0 g/dL [facility] AST 20 15 - 41 U/L [facility] ALT 30 0 - 44 U/L [facility] Alkaline Phosphatase 93 38 - 126 U/L [facility] Total Bilirubin 0.3 0.3 - 1.2 mg/dL [facility] GFR, Estimated >60 >60 mL/min [facility] GFR, Est AFR Am >60 >60 mL/min [facility] Anion gap 6 5 - 15 [facility] Comment:Performed at [facility] at [facility], [address], [place] [address] Blood specimen (specimen) 01/10/2020 11:52 AM EDT 01/10/2020 11:53 AM EDT us Kristian Thakkar MD LAB BLOOD ORDERABLES Final Resul t [facility] * CBC with Differential (Cancer Center Only) (01/10/2020 11:52 AM EDT) WBC Count 7.2 4.0 - 10.5 K/uL [facility] RBC 5.21 4.22 - 5.81 MIL/uL [facility] Hemoglobin 14.2 13.0 - 17.0 g/dL [facility] HCT 44.0 39.0 - 52.0 % [facility] MCV 84.5 80.0 - 100.0 fL [facility] MCH 27.3 26.0 - 34.0 pg [facility] MCHC 32.3 30.0 - 36.0 g/dL [facility] RDW 13.7 11.5 - 15.5 % [facility] Platelet Count 311 150 - 400 K/uL [facility] nRBC 0.0 0.0 - 0.2 % [facility] Neutrophils Relative % 62 % [facility] Neutro Abs 4.5 1.7 - 7.7 K/uL [facility] Lymphocytes Relative 24 % [facility] Lymphs Abs 1.7 0.7 - 4.0 K/uL [facility] Monocytes Relative 11 % [facility] Monocytes Absolute 0.8 0.1 - 1.0 K/uL [facility] Eosinophils Relative 1 % [facility] Eosinophils Absolute 0.1 0.0 - 0.5 K/uL [facility] Basophils Relative 1 % [facility] Basophils Absolute 0.1 0.0 - 0.1 K/uL [facility] Immature Granulocytes 1 % [facility] Abs Immature Granulocytes 0.05 0.00 - 0.07 K/uL [facility] Comment:Performed at [facility] at [facility], [address] [place] [address], [place] [address] 01/10/2020 11:5 2 AM EDT 01/10/2020 11:53 AM EDT us Kristian Thakkar MD LAB BLOOD ORDERABLES Final Resul t [facility] documented in this encounter Visit Diagnoses Diagnosis Portal vein thrombosis- Primary documented in this encounter Care Teams Director Of Special Events Relationship Specialty Start Date End Date Liliana Castillo MD [address] [place] [address] PCP - General Internal Medicine 11/21/19 04/26/25 Aryan Charlton PA [address] [place] [address] PCP - General Physician Industrial Safety And Health Specialist 04/27/25 documented as of this encounter
--- OUTSIDE RECORDS SUMMARY | 2025-06-07 17:47 | XMS_ITS | Encounter Summary ---
Author Organization [employer] Address [address] [place] [address] Care Team Providers Care Cell Biology Scientist Name Role Phone Riki Schneider MD Primary Care Provider [phone] Encounter Details Date Type Department Care Team (Late st Contact Info) Description 12/30/2016 Conversion Orders Only [email or web address] HISTORICAL DATA CONVERSIONS [address] [place] [address] Social History Tobacco Use Types Packs/Day Years [...] on filedocumented in this encounter Care Teams Cell Biology Scientist Relationship Specialty Start Date End Date Riki Schneider MD PCP - General Internal Medicine 12/10/16 documented as of this encounter
--- OUTSIDE RECORDS SUMMARY | 2025-06-07 17:47 | XMS_ITS | Referral Summary ---
Author Organization [facility] [place] [address] Care Team Providers Care Childcare Worker Name Role Phone Riki Schnieder MD Primary Care Provider [phone] Allergies Active [...] Plan of Treatment Not on file [place] [address] [place] [address] Care Teams Childcare Worker Relationship Specialty Start Date End Date Riki Schneider MD PCP - General Internal Medicine 12/10/16
--- OUTSIDE RECORDS SUMMARY | 2025-06-07 17:47 | XMS_ITS | Encounter Summary ---
Author Organization [facility] Address [address] [place] [address] Care Team Providers Care Chip Mucker Name Role Phone Liliana Castillo MD Primary Care Provi mirella Aryan Charlton Primary Care Provider [phone] Encounter Details Date Type Department Care Team (Late st Contact Info) Description 03/22/2025 Orders Only [facility]-VIEW ONLY ACCESS Reymundo Jones MD [address] [place] [address] Social History Tobacco Use Types [...] on filedocumented in this encounter Care Teams Chip Mucker Relationship Specialty Start Date End Date Liliana Castillo MD [address] [place] [address] PCP - General Internal Medicine 11/21/19 04/26/25 Aryan Charlton PA [address] [place] [address] PCP - General Physician Carbonation Equipment Tender 04/27/25 documented as of this encounter
--- OUTSIDE RECORDS SUMMARY | 2025-06-07 17:47 | XMS_ITS | Encounter Summary ---
Author Organization [facility] Address [address] [place] [address] Care Team Providers Care Supervisor Body Assembly Name Role Phone Liliana Castillo MD Primary Care Provi mirella Aryan Charlton Primary Care Provider [phone] Encounter Details Date Type Department Care Team (Late st Contact Info) Description 01/25/2020 Scanned Document [facility] Dept Of [address] [address] Provider, MD Julianne Social History Tobacco Use [...] on filedocumented in this encounter Care Teams Supervisor Body Assembly Relationship Specialty Start Date End Date Liliana Castillo MD [address] [place] [address] PCP - General Internal Medicine 11/21/19 04/26/25 Aryan Charlton PA [address] [place] [address] PCP - General Physician Hand Ii Cutter 04/27/25 documented as of this encounter
--- OUTSIDE RECORDS SUMMARY | 2025-06-07 17:47 | XMS_ITS | Clinical Summary ---
Author Organization [facility] visits prior to 11/14/2023. Address [place] [address] Care Team Providers Care Corporate Director Talent Assessment Name Role Phone Riki Schneider MD Primary Care Provider [phone] Allergies Active Allergy Reactions Criticality Noted Date [...] 2022 INFLUENZA VACCINE 04/14/2025 11/23/2019 Care Teams Corporate Director Talent Assessment Relationship Specialty Start Date End Date Riki Schneider MD [facility] [place] [address] PCP - General Internal Medicine 12/10/16
--- OUTSIDE RECORDS SUMMARY | 2025-06-07 17:47 | XMS_ITS | Encounter Summary ---
Author Organization [employer] Address [place] [address] Care Team Providers Care Government Instructor Name Role Phone Riki Schneider MD Primary Care Provider [phone] Encounter Details Date Type Department Care Team (Late st Contact Info) Description 02/05/2023 Conversion Orders Only [employer] HISTORICAL DATA CONVERSIONS [address] [place] [address] Social History Tobacco Use Types Packs/Day Years [...] on filedocumented in this encounter Care Teams Government Instructor Relationship Specialty Start Date End Date Riki Schneider MD PCP - General Internal Medicine 12/10/16 documented as of this encounter
--- OUTSIDE RECORDS SUMMARY | 2025-06-07 17:47 | XMS_ITS | Encounter Summary ---
Author Organization [facility] Address [address] [place] [address] Care Team Providers Care Analytical Statistician Name Role Phone Liliana Castillo MD Primary Care Provi mirella Aryan Charlton Primary Care Provider [phone] Encounter Details Date Type Department Care Team (Late st Contact Info) Description 04/17/2025 Orders Only [facility]-VIEW ONLY ACCESS Reymundo Jones MD [address] [place] [address] Social History Tobacco Use Types [...] on filedocumented in this encounter Care Teams Analytical Statistician Relationship Specialty Start Date End Date Liliana Castillo MD [address] [place] [address] PCP - General Internal Medicine 11/21/19 04/26/25 Aryan Charlton PA [address] [place] [address] PCP - General Physician Supervisor Telephone Answering Service 04/27/25 documented as of this encounter
== END 2025-06-07 15:51 | disposition home or self-care (01) ==
PROVIDERS: Registered Nurse Emergency; Emergency Provider Emergency Medicine
DX: B34.9 Viral infection, unspecified (principal); R05.9 Cough, unspecified; M25.512 Pain in left shoulder; R50.9 Fever, unspecified; R53.83 Other fatigue
CPT/HCPCS: 87502; 87635; 87651; 99283; 99284